=== PATIENT | female | born 1985 | race Caucasian/White ===

== ENCOUNTER 2019-03-10 07:15 | Emergency (ER) | payer SELFPAY ==
[~2019-03-10] VITALS: Ht 165.1 cm; Wt 54.0 kg
--- NOTE | 2019-03-10 07:19 | NUR ---
PT BIB [facility] TO ER BED 5
[2019-03-10 07:20] VITALS: BP 133/96
[2019-03-10 07:21] VITALS: BP 133/96
--- NOTE | 2019-03-10 07:21 | NUR ---
PT BIBA BECAUSE SHE WAS WALKING ON [address] PT HAS FLIGHT OF IDEAS. PT ADMITS TO METH USE TODAY. PT DENIES ANY PAIN AT THIS TIME. MEDHX:UNKOWN RX:UNKOWN
[2019-03-10] MEDS ORDERED: NACL 0.9% 1,000 ML IV ONE (07:30)
[2019-03-10] MEDS ORDERED: ONDANSETRON 4 MG/2 ML VIAL IVP ONE (07:30)
--- NOTE | 2019-03-10 07:43 | NUR ---
PT REFUSED IV, LABS, AND URINE, ER MD MADE AWARE. PT AAOX4, NON-COOPERATIVE WALKING AROUND ER. PT STATED SHE WANTED TO LEAVE, I WAS TRYING TO SHOW HER THE EXIT WHEN PT TOOK OFF RUNNING THROUGH THE HOSPITAL.
--- NOTE | 2019-03-10 07:45 | NUR ---
Patient does not wish to proceed with Medications recommended by Dr Collins. Pt verbalized wanting to leave the hospital. Patient given information related to possible complications, up to and including , which could occur as a result from refusing treatment at this time. Patient verbalizes understanding of risks involved from refusing treatment. Pt was walking around ER; staff attempted to show her the exit but pt started running to a different medical unit. Pt was scorted outside of the hospital by security.
== END 2019-03-10 07:43 | disposition left against medical advice (07) ==
LOC: MED 07:15
DX: R41.82 Altered mental status, unspecified (principal); R11.0 Nausea; Z88.0 Allergy status to penicillin
CPT/HCPCS: 93005; 99283